=== PATIENT | male | born 1985 | race African-American/Black ===

== ENCOUNTER 2017-07-01 11:48 | Emergency (ER) | payer OTHER ==
[~2017-07-01] VITALS: Ht 177.8 cm; Wt 102.5 kg
[~2017-07-01 11:48] MED LIST: AZITHROMYCIN250 MG PO
[2017-07-01] MEDS ORDERED: ASPIRIN 325 MG TAB PO ONE (12:30)
[2017-07-01 13:41] VITALS: BP 126/68
== END 2017-07-01 13:44 | disposition home or self-care (01) ==
LOC: FSED 11:48
CPT/HCPCS: 80053; 82553; 84484; 85025; 93005; 99284